=== PATIENT | male | born 1975 | race Hispanic/Latino ===

== ENCOUNTER 2025-01-17 03:38 | Observation (INO) ==
[2025-01-17] MEDS ORDERED: HALOPERIDOL LACTATE 5 MG/ML VIAL ONE (03:51)
[2025-01-17] MEDS ORDERED: 0.9 % SODIUM CHLORIDE 1000 ML 1,000 ML IV ONE ×4 (04:17→10:08)
[2025-01-17] MEDS: 0.9 % SODIUM CHLORIDE 1000 ML 1,000 ML IV ONE ×2 (04:23→06:08)
[2025-01-17] MEDS: HALOPERIDOL LACTATE 5 MG/ML VIAL INJ ONE (04:25)
[2025-01-17 04:26] LABS: Basophils #(Absolute) Auto 0.1 (0.0-0.1); Basophils%(Percent) Auto 0.8 (0.0-1.3); Eosinophils#(Absolute)Auto 0.2 (0.0-0.3); Eosinophils%(Percent) Auto 1.2 % (0.0-4.0); Granulocytes#(Absolute)- Auto 10.9 (2.0-6.2); Hematocrit 41.7 % (41.3-50.1); Monocytes #(Absolute)- Auto 1.5 (0.2-0.8); Monocytes %(Percent)- Auto 9.4 % (4.5-10.7); Platelet Count 265 K/uL (142-355); White Blood Count 15.6 K/uL (3.7-9.6)
[2025-01-17 05:10] LABS: Potassium 2.9 mmol/L (3.6-5.2)
[2025-01-17] MEDS: POTASSIUM CHLORIDE IN WATER 10 MEQ/100 ML PIGGYBACK IV ONE (06:08)
[2025-01-17] MEDS ORDERED: POTASSIUM CHLORIDE IN WATER 10 MEQ/100 ML PIGGYBACK IV ONE (06:09)
--- NOTE | 2025-01-17 08:06 | Emergency Department Note ---
HPI - General Adult General Chief complaint: Anxiety Stated complaint: ANXIETY/SUBSTANCE USE Time Seen by Provider: 01/17/25 03:54 Source: patient Mode of arrival: walk-in Limitations comment: under the influence History of Present Illness HPI narrative: Patient is a 49-year-old male in complaining of having ingested drugs prior to arrival. He told the nurses that it was cocaine and fentanyl he told me meth Onset (ago): hour(s) Treatments prior to arrival: Reports none Related Data Home Medications Medication Instructions Recorded Confirmed No Known Home Medication 01/17/25 01/17/25 Allergies Allergy/AdvReac Type Severity Reaction Status Date / Time No Known Drug Allergies Allergy Verified 01/17/25 04:30 Review of Systems Status of ROS 10 or more systems reviewed and unremark able except as noted in history and below Psychiatric Reports: anxiety, panic attacks, irritability and paranoia PFSH PFSH Medical History No active medical problems Social History Smoking status: current every day smoker What is your current living situation: I presently have a place to live Problems where you live: no known problems Highest level of school completed/degree received: decline to answer Do you think of yourself as: straight/heterosexual Gender Identity: male Exam Constitutional: normal general appearance Vital Signs - 24 hr 01/17/25 03:45 01/17/25 04:15 01/17/25 05:00 Temperature 97.5 F L 97.5 F L Pulse Rate 161 H 109 H 101 H Respiratory Rate 32 H 17 17 Blood Pressure 152/87 109/73 100/62 Pulse Oximetry 89 L 94 L 95 Oxygen Delivery Me thod Room Air Room Air Room Air 01/17/25 06:00 01/17/25 06:56 Temperature 97.5 F L Pulse Rate 95 H 88 Respiratory Rate 13 13 Blood Pressure 100/62 107/69 Pulse Oximetry 96 97 Oxygen Delivery Me thod Room Air Room Air HENMT: normocephalic Eyes: PERRL Chest: inspection of chest normal Respiratory: breath sounds equal bilaterally Cardiovascular: heart rate abnormal Neurology: clinical science consultant II-XII intact Patient very agitated. Rocking all over the bed Skin: skin color normal Course Course Hospital Course: Patient turned over to oncoming provider 0800: patient resting comfortably 1010: patient up walking to the bathroom, states he is feeling much better, no s/s of acute distress noted 1449: Spoke to Dr Fu about patient reviewed labs and imaging with her and she accepted patient to the medical floor for further evaluation and treatment. VSS, no s/s of acute distress noted Vital Signs Vital signs: Vital Signs Temperature 97.5 F L 01/17/25 03:45 Pulse Rate 161 H 01/17/25 03:45 Respiratory Rate 32 H 01/17/25 03:45 Blood Pressure 152/87 01/17/25 03:45 Pulse Oximetry 89 L 01/17/25 03:45 Oxygen Delivery Method Room Air 01/17/25 03:45 Temperature 97.5 F L 01/17/25 06:00 Pulse Rate 88 01/17/25 06:56 Respiratory Rate 13 01/17/25 06:56 Blood Pressure 107/69 01/17/25 06:56 Pulse Oximetry 97 01/17/25 06:56 Oxygen Delivery Method Room Air 01/17/25 06:56 Medical Decision Making Differential Diagnosis Differential Diagnosis: viral illness Medical Records Medical records reviewed: Yes I reviewed the patient's medical records Lab Data Lab results reviewed: Yes I reviewed the patient's lab results Labs: Lab Results 01/17/25 01/17/25 01/17/25 Range/Units 04:30 08:38 10:13 WBC 15.6 H 16.3 H (3.7-9.6) K/uL RBC 4.7 4.3 L (4.40-5.80) M/uL Hgb 14.5 12.7 L (14.0-17.4) gm/dL Hct 41.7 37.7 L (41.3-50.1) % MCV 88.0 88.5 (81.9-96.5) fl MCH 30.5 29.7 (27.6-33.7) pg MCHC 34.7 33.6 (33.0-35.7) g/dl RDW 14.1 14.1 (11.0-14.8) % Plt Count 265 199 (142-355) K/uL MPV 7.6 7.5 (6.0-10.4) fl Gran % 70.0 80.7 H (49.1-73.1) % Lymph % (Auto) 18.6 9.8 L (17.6-39.05) % [place] % (Auto) 9.4 8.9 (4.5-10.7) % Eos % (Auto) 1.2 0.2 (0.0-4.0) % Baso % (Auto) 0.8 0.4 (0.0-1.3) Lymph # (Auto) 2.9 1.6 (0.8-2.9) [place] # (Auto) 1.5 H 1.5 H (0.2-0.8) Eos # (Auto) 0.2 0.0 (0.0-0.3) Baso # (Auto) 0.1 0.1 (0.0-0.1) Absolute Gran (auto) 10.9 H 13.2 H (2.0-6.2) Sodium 140 140 (136-145) mmol/L Potassium 2.9 L 3.9 (3.6-5.2) mmol/L Chloride 102.0 105.0 (98-107) mmol/L Carbon Dioxide 25 24 (21-32) mmol/L Anion Gap 13.0 11.0 (4-14) mEq/L BUN 22 H 20 H (7-18) mg/dL Creatinine 1.6 H 1.2 (0.6-1.3) mg/dL Estimated GFR 51.8 73.2 (>59.9) Glucose 95 84 (70-110) mg/dL Calcium 8.7 8.2 L (8.5-10.1) mg/dL Magnesium 1.8 (1.8-2.4) mg/dL Total Bilirubin 0.63 0.57 (0.0-1.0) mg/dL AST 50 H 45 H (15-37) U/L ALT 37 34 (30-65) U/L Alkaline Phosphatase 72 64 (50-136) U/L Total Creatine Kinase 1122 H* 879 H* (39-308) U/L Troponin I High Sens 8.70 (4.0-60.4) ng/L Total Protein 7.4 6.8 (6.4-8.2) g/dL Albumin 3.9 3.5 (3.4-5.0) g/dL Urine Color Dark yellow (STRAW/YELL.) Urine Appearance Hazy (CLEAR) Ur Specific [place] 1.030 (1.001-1.035) Urine Protein 2+ (NEGATIVE) Urine Glucose (UA) Normal (NORMAL) Urine Ketones Moderate (NEGATIVE) Urine Occult Blood Negative (NEG - TRACE) Urine Nitrite Negative (NEGATIVE) Urine Bilirubin Negative (NEGATIVE) Urine Urobilinogen Normal (NORMAL) Ur Leukocyte Esterase Negative (NEGATIVE) Fluid pH 6.0 (5 - 9) Salicylates <2.8 L (2.8-20) mg/dL Urine Opiates Screen Neg. (NEGATIVE) Urine Methadone Screen Neg. (NEGATIVE) Acetaminophen 0.0 L (10.0-30.0) ug/mL Barbiturate Screen Neg. (NEGATIVE) Ur Phencyclidine Scrn Neg. (NEGATIVE) Amphetamines Screen Pos. (NEGATIVE) U Benzodiazepines Scrn Neg. (NEGATIVE) Urine Cocaine Screen Pos. (NEGATIVE) U Marijuana (THC) Screen Pos. (NEGATIVE) Plasma/Serum Alcohol 0 (0-10) mg/dL 01/17/25 Range/Units 13:45 WBC 14.2 H (3.7-9.6) K/uL RBC 4.2 L (4.40-5.80) M/uL Hgb 12.9 L (14.0-17.4) gm/dL Hct 39.1 L (41.3-50.1) % MCV 92.1 (81.9-96.5) fl MCH 30.4 (27.6-33.7) pg MCHC 32.9 L (33.0-35.7) g/dl RDW 15.0 H (11.0-14.8) % Plt Count 199 (142-355) K/uL MPV 7.8 (6.0-10.4) fl Gran % 77.0 H (49.1-73.1) % Lymph % (Auto) 14.3 L (17.6-39.05) % [place] % (Auto) 7.3 (4.5-10.7) % Eos % (Auto) 0.9 (0.0-4.0) % Baso % (Auto) 0.5 (0.0-1.3) Lymph # (Auto) 2.0 (0.8-2.9) [place] # (Auto) 1.0 H (0.2-0.8) Eos # (Auto) 0.1 (0.0-0.3) Baso # (Auto) 0.1 (0.0-0.1) Absolute Gran (auto) 10.9 H (2.0-6.2) Sodium 139 (136-145) mmol/L Potassium 4.1 (3.6-5.2) mmol/L Chloride 106.0 (98-107) mmol/L Carbon Dioxide 26 (21-32) mmol/L Anion Gap 7.0 (4-14) mEq/L BUN 18 (7-18) mg/dL Creatinine 1.0 (0.6-1.3) mg/dL Estimated GFR 91.1 (>59.9) Glucose 70 (70-110) mg/dL Calcium 8.1 L (8.5-10.1) mg/dL Magnesium (1.8-2.4) mg/dL Total Bilirubin 0.60 (0.0-1.0) mg/dL AST 51 H (15-37) U/L ALT 35 (30-65) U/L Alkaline Phosphatase 64 (50-136) U/L Total Creatine Kinase 1088 H* (39-308) U/L Troponin I High Sens (4.0-60.4) ng/L Total Protein 6.7 (6.4-8.2) g/dL Albumin 3.3 L (3.4-5.0) g/dL Urine Color (STRAW/YELL.) Urine Appearance (CLEAR) Ur Specific [place] (1.001-1.035) Urine Protein (NEGATIVE) Urine Glucose (UA) (NORMAL) Urine Ketones (NEGATIVE) Urine Occult Blood (NEG - TRACE) Urine Nitrite (NEGATIVE) Urine Bilirubin (NEGATIVE) Urine Urobilinogen (NORMAL) Ur Leukocyte Esterase (NEGATIVE) Fluid pH (5 - 9) Salicylates (2.8-20) mg/dL Urine Opiates Screen (NEGATIVE) Urine Methadone Screen (NEGATIVE) Acetaminophen (10.0-30.0) ug/mL Barbiturate Screen (NEGATIVE) Ur Phencyclidine Scrn (NEGATIVE) Amphetamines Screen (NEGATIVE) U Benzodiazepines Scrn (NEGATIVE) Urine Cocaine Screen (NEGATIVE) U Marijuana (THC) Screen (NEGATIVE) Plasma/Serum Alcohol (0-10) mg/dL Imaging Data Chest x-ray: Attestation: I have reviewed the pertinent imaging results. Discharge Plan Discharge Patient Disposition: Admitted As Observation Condition: Stable Chief Complaint: Anxiety Clinical Impression: Rhabdomyolysis, Acute dehydration, Elevated creatine kinase Prescriptions: No Action No Known Home Medication Print Language: Bulgarian Referrals: Provider,NO PCP [Primary Care Provider] - Time of Disposition: 14:53
[2025-01-17] MEDS: 0.9 % SODIUM CHLORIDE 1000 ML 1,000 ML IV STA ×2 (08:25→10:06)
[2025-01-17 09:00] LABS: Basophils #(Absolute) Auto 0.1 (0.0-0.1); Basophils%(Percent) Auto 0.4 (0.0-1.3); Eosinophils%(Percent) Auto 0.2 % (0.0-4.0); Granulocytes % - Auto 80.7 % (49.1-73.1); Granulocytes#(Absolute)- Auto 13.2 (2.0-6.2); Hematocrit 37.7 % (41.3-50.1); Mean Corpuscular Volume 88.5 fl (81.9-96.5); Monocytes #(Absolute)- Auto 1.5 (0.2-0.8); Monocytes %(Percent)- Auto 8.9 % (4.5-10.7); Platelet Count 199 K/uL (142-355); White Blood Count 16.3 K/uL (3.7-9.6)
[2025-01-17 09:09] LABS: Potassium 3.9 mmol/L (3.6-5.2)
[2025-01-17 10:51] LABS: Urine Appearance HAZY (CLEAR); Urine Blood NEGATIVE (NEG - TRACE); Urine Color DARK YELLOW (STRAW/YELL.); Urine Urobilinogen Normal (NORMAL)
[2025-01-17 11:06] LABS: Amphetamine Screen Urine POS. (NEGATIVE); Cannabinoid Screen Urine POS. (NEGATIVE); Cocaine Screen Urine POS. (NEGATIVE); Methadone Screen Urine NEG. (NEGATIVE); Opiate Screen Urine NEG. (NEGATIVE)
[2025-01-17 13:56] LABS: Hematocrit 39.1 % (41.3-50.1); Mean Corpuscular Volume 92.1 fl (81.9-96.5); Platelet Count 199 K/uL (142-355); White Blood Count 14.2 K/uL (3.7-9.6)
[2025-01-17 13:57] LABS: Basophils%(Percent) Auto 0.5 (0.0-1.3); Eosinophils#(Absolute)Auto 0.1 (0.0-0.3); Eosinophils%(Percent) Auto 0.9 % (0.0-4.0); Granulocytes#(Absolute)- Auto 10.9 (2.0-6.2); Monocytes %(Percent)- Auto 7.3 % (4.5-10.7)
[2025-01-17 13:58] LABS: Basophils #(Absolute) Auto 0.1 (0.0-0.1)
[2025-01-17 14:09] LABS: Potassium 4.1 mmol/L (3.6-5.2)
--- NOTE | 2025-01-17 16:16 | History & Physical Report ---
H&P: HPI History of Present Illness Chief complaint: DEHYDRATION Review of Systems Status of ROS 10 or more systems reviewed and unremark able except as noted in history and below Psychiatric Reports: anxiety, panic attacks, irritability and paranoia [facility] Medical History (Updated 01/18/25 @ 12:08 by Carol Fu DO) Patient's noncompliance with other medical treatment and regimen for other reason Cannabis abuse Methamphetamine abuse Cocaine abuse with cocaine-induced psychotic disorder UTI (urinary tract infection) Lactic acid acidosis Leukocytosis Anemia No active medical problems Social History Smoking status: current every day smoker What is your current living situation: I presently have a place to live Problems where you live: no known problems Highest level of school completed/degree received: decline to answer Do you think of yourself as: straight/heterosexual Gender Identity: male Meds Home Medications and Allergies Home Medications Medication Instructions Recorded Confirmed Type No Known Home Medication 01/17/25 01/17/25 History Allergies Allergy/AdvReac Type Severity Reaction Status Date / Time No Known Drug Allergies Allergy Verified 01/17/25 20:06 Exam Constitutional: abnormal general appearance (disheveled) and (chronically ill), distress noted (cannot be still) (moderate), abnormal body habitus, limitations noted (behavioral limitations) and alert Vital Signs - 24 hr 01/17/25 03:45 01/17/25 04:15 01/17/25 05:00 Temperature 97.5 F L 97.5 F L Pulse Rate 161 H 109 H 101 H Respiratory Rate 32 H 17 17 Blood Pressure 152/87 109/73 100/62 Pulse Oximetry 89 L 94 L 95 Oxygen Delivery Me thod Room Air Room Air Room Air 01/17/25 06:00 01/17/25 06:56 Temperature 97.5 F L Pulse Rate 95 H 88 Respiratory Rate 13 13 Blood Pressure 100/62 107/69 Pulse Oximetry 96 97 Oxygen Delivery Me thod Room Air Room Air HENMT: normocephalic, head/scalp traumatic (abrasion) and (contusion), TMs abnormal (fluid behind TM) and nasal mucous membranes abnormal (erythema and swelling ) (nasal discharge) and (abnormal septum) Eyes: PERRL, EOMs intact bilaterally, conjunctivae abnormal, papilledema noted and periorbital findings normal Neck/C-Spine: abnormal to visual inspection, trachea midline, cervical spine nontender, abnormal cervical ROM noted, supple, no meningeal signs, thyroid normal and no carotid bruits Lymph: no lymphadenopathy noted and no lymphedema noted Chest: inspection of chest normal and palpation of chest normal Respiratory: breath sounds unequal, abnormal respiratory effort (shallow breathing), clear to auscultation bilaterally, no wheezes, rales noted, no retractions and no use of accessory muscles Cardiovascular: heart rate abnormal (tachycardic) (resolved with medication and fluids in the er), regular rhythm noted, no gallop, no rub, no murmur, no JVD, no clicks, peripheral pulses as noted: and no bruits noted Gastrointestinal: abdomen abnormal to inspection, abdomen soft to palpation, nontender to palpation, nondistended, abnormal bowel sounds noted, hepatosplenomegaly noted, no masses, no pulsatile mass and no ascites Genitourinary: no CVA tenderness and bladder normal to palpation Back/Pelvis: spine abnormal to inspection, no thoracic spine tenderness, no lumbar spine tenderness, thoracic spine ROM normal and lumbar spine ROM normal Extremities: abnormal to inspection (scratches all over arms and shins), normal to palpation, no tenderness, abnormal ROM noted, no joint enlargement and deformity noted Neurology: global position system technician II-XII intact, no movement abnormality noted, no focal motor deficit noted, sensory deficit noted, deep tendon reflexes 2+ bilaterally, gait abnormality noted, speech abnormality noted, coordination abnormality noted, no fasciculations noted and GCS calculation - Eye opening: To sound Verbal response: Confused Motor response: Obey commands [place] Coma Scale total score: 13 Patient very agitated. Rocking all over the bed Psychiatry: Mental Status Exam documented within this Exam's Psych section mental status abnormal (somnolent), oriented x3, thought process abnormality noted, cooperative, affect abnormality noted (anxious) and (hostile), psychomotor abnormality noted (agitated) and (hyperactive) and memory normal Feel stressed/tense/nervous/anxious/difficulty sleeping: decline to answer Skin: skin color normal, rash noted, no lesions, no ecchymosis noted, wound(s) noted, no lacerations, skin turgor abnormal Reports (tenting), no jaundice, no petechiae, no mottling, nails abnormality noted and alopecia noted Reports (male pattern alopecia) Assessment and Plan Assessment and Plan (1) Rhabdomyolysis: Qualifiers: Rhabdomyolysis type: non-traumatic Qualified Code(s): M62.82 - Rhabdomyolysis Code(s): M62.82 - Rhabdomyolysis (2) Cocaine abuse with cocaine-induced psychotic disorder: Qualifiers: Complication of substance-induced condition: with unspecified complication Qualified Code(s): F14.159 - Cocaine abuse with cocaine-induced psychotic disorder, unspecified Code(s): F14.159 - Cocaine abuse with cocaine-induced psychotic disorder, unspecified (3) Methamphetamine abuse: Code(s): F15.10 - Other stimulant abuse, uncomplicated (4) Acute dehydration: Code(s): E86.0 - Dehydration (5) Proteinuria: Qualifiers: Proteinuria type: unspecified Qualified Code(s): R80.9 - Proteinuria, unspecified Code(s): R80.9 - Proteinuria, unspecified (6) Leukocytosis: Qualifiers: Leukocytosis type: unspecified Qualified Code(s): D72.829 - Elevated white blood cell count, unspecified Code(s): D72.829 - Elevated white blood cell count, unspecified (7) Anemia: Qualifiers: Anemia type: other cause Other causes of anemia: other cause, not classified Qualified Code(s): D64.89 - Other specified anemias Code(s): D64.9 - Anemia, unspecified (8) Cannabis abuse: Code(s): F12.10 - Cannabis abuse, uncomplicated (9) Patient's noncompliance with other medical treatment and regimen for other reason: Code(s): Z91.198 - Patient's noncompliance with other medical treatment and regimen for other reason Plan 0.9% NS at 200 ml per hour cardiac monitoring and continuos oximetry neuro checks every 2 hours and prn up out of bed as tolerated at least 3 times per day encourage oral intake of fluids drug education and need to stop Results Labs Labs: CBC 01/17/25 01/17/25 01/17/25 Range/Units 04:30 08:38 13:45 WBC 15.6 H 16.3 H 14.2 H (3.7-9.6) K/uL RBC 4.7 4.3 L 4.2 L (4.40-5.80) M/uL Hgb 14.5 12.7 L 12.9 L (14.0-17.4) gm/dL Hct 41.7 37.7 L 39.1 L (41.3-50.1) % Plt Count 265 199 199 (142-355) K/uL Gran % 70.0 80.7 H 77.0 H (49.1-73.1) % Lymph % (Auto) 18.6 9.8 L 14.3 L (17.6-39.05) % [place] % (Auto) 9.4 8.9 7.3 (4.5-10.7) % Eos % (Auto) 1.2 0.2 0.9 (0.0-4.0) % Baso % (Auto) 0.8 0.4 0.5 (0.0-1.3) Lymph # (Auto) 2.9 1.6 2.0 (0.8-2.9) [place] # (Auto) 1.5 H 1.5 H 1.0 H (0.2-0.8) Eos # (Auto) 0.2 0.0 0.1 (0.0-0.3) Baso # (Auto) 0.1 0.1 0.1 (0.0-0.1) Absolute Gran (auto) 10.9 H 13.2 H 10.9 H (2.0-6.2) CMP 01/17/25 01/17/25 01/17/25 04:30 08:38 13:45 Sodium 140 140 139 Potassium 2.9 L 3.9 4.1 Chloride 102.0 105.0 106.0 Carbon Dioxide 25 24 26 BUN 22 H 20 H 18 Creatinine 1.6 H 1.2 1.0 Glucose 95 84 70 Calcium 8.7 8.2 L 8.1 L Cardiac Enzymes 01/17/25 01/17/25 01/17/25 04:30 08:38 13:45 Total Creatine Kinase 1122 H* 879 H* 1088 H* Liver Function 01/17/25 01/17/25 01/17/25 Range/Units 04:30 08:38 13:45 Total Bilirubin 0.63 0.57 0.60 (0.0-1.0) mg/dL AST 50 H 45 H 51 H (15-37) U/L ALT 37 34 35 (30-65) U/L Alkaline Phosphatase 72 64 64 (50-136) U/L Albumin 3.9 3.5 3.3 L (3.4-5.0) g/dL Urine 01/17/25 10:13 Urine Color Dark yellow Urine Appearance Hazy Ur Specific [place] 1.030 Urine Protein 2+ Urine Glucose (UA) Normal Pulse Oximetry Attestation: I have reviewed the pertinent pulse oximetry results. ECG Attestation: I have reviewed the pertinent ECG results. Prior ECG tracings: available for review Imaging Imaging ordered: Chest x-ray Radiologist's impression: XR CHEST 1V HISTORY: coughcough; COMPARISON: Prior study or studies were utilized for comparison during interpretation with the most relevant dated 12/08/2024 TECHNIQUE: XR CHEST 1V FINDINGS: Chest: Lines and tubes: Cardiac leads overlie the chest. Mediastinum: Cardiac and mediastinal shadow is within normal limits for size and contour. Pulmonary vessels: No pulmonary vascular congestion. Lung negrete: No suspicious airspace opacity. Pleura: No effusion. No pneumothorax. Bones and soft tissues: No acute osseous or soft tissue abnormality. IMPRESSION: 1. No acute cardiopulmonary abnormality
[2025-01-17] MEDS ORDERED: ACETAMINOPHEN 500 MG TABLET PO PRN (20:02)
[2025-01-17] MEDS ORDERED: MAGNESIUM, ALUMINUM HYDROXIDE 30 ML ORAL.SUSP PO PRN (20:02)
[2025-01-17] MEDS ORDERED: DOCUSATE SODIUM 100 MG CAPSULE PO PRN (20:02)
[2025-01-17] MEDS ORDERED: ONDANSETRON HCL/PF 4 MG/2 ML VIAL INJ PRN (20:02)
[2025-01-17] MEDS: 0.9 % SODIUM CHLORIDE 1000 ML 1,000 ML IV SCH (21:04)
[2025-01-18 04:05] LABS: Basophils #(Absolute) Auto 0.1 (0.0-0.1); Basophils%(Percent) Auto 0.6 (0.0-1.3); Eosinophils#(Absolute)Auto 0.3 (0.0-0.3); Eosinophils%(Percent) Auto 3.3 % (0.0-4.0); Granulocytes % - Auto 57.3 % (49.1-73.1); Granulocytes#(Absolute)- Auto 5.2 (2.0-6.2); Hematocrit 35.5 % (41.3-50.1); Mean Corpuscular Volume 88.1 fl (81.9-96.5); Monocytes #(Absolute)- Auto 0.7 (0.2-0.8); Monocytes %(Percent)- Auto 7.4 % (4.5-10.7); Platelet Count 192 K/uL (142-355); White Blood Count 9.1 K/uL (3.7-9.6)
[2025-01-18 04:35] LABS: Potassium 3.7 mmol/L (3.6-5.2)
[2025-01-18 11:58] VITALS: RESP 20
[2025-01-18 15:45] VITALS: BP 115/63; PULSE 65; TEMP 97.8
--- NOTE | 2025-01-18 18:04 | Discharge Summary ---
DS: Providers Provider Date of admission: 01/17/25 15:00 Primary care physician: NO PCP Provider Admitting clinician: Ilana Ferrera Attending physician on admission: Carol Fu Attending physician on discharge: Carol Fu Discharging clinician: Carol Fu Anticipated date of discharge: 01/18/25 DS: Diagnosis Discharge Diagnosis (1) Rhabdomyolysis: Qualifiers: Rhabdomyolysis type: non-traumatic Qualified Code(s): M62.82 - Rhabdomyolysis (2) Cocaine abuse with cocaine-induced psychotic disorder: Qualifiers: Complication of substance-induced condition: with unspecified complication Qualified Code(s): F14.159 - Cocaine abuse with cocaine-induced psychotic disorder, unspecified (3) Methamphetamine abuse: (4) Acute dehydration: (5) Proteinuria: Qualifiers: Proteinuria type: unspecified Qualified Code(s): R80.9 - Proteinuria, unspecified (6) Leukocytosis: Qualifiers: Leukocytosis type: unspecified Qualified Code(s): D72.829 - Elevated white blood cell count, unspecified (7) Anemia: Qualifiers: Anemia type: other cause Other causes of anemia: other cause, not classified Qualified Code(s): D64.89 - Other specified anemias (8) Cannabis abuse: (9) Patient's noncompliance with other medical treatment and regimen for other reason: (10) Encounter for smoking cessation counseling: (11) Tobacco dependence due to cigarettes: DS: Summary Hospital Course Hospital Course: Patient turned over to oncoming provider 0800: patient resting comfortably 1010: patient up walking to the bathroom, states he is feeling much better, no s/s of acute distress noted 1449: Spoke to Dr Fu about patient reviewed labs and imaging with her and she accepted patient to the medical floor for further evaluation and treatment. VSS, no s/s of acute distress noted CPK trended 879 in the ER was given liter bolus normal saline run at 125 to move to the floor that was run at 100 mL/h overnight CPK went up to 1088 at 1345 on 420 01/2025 then in the a.m. of 01/18/2025 was 1106 close are still running at 100 overnight so increase fluids to 200/h and it ran from 9:30 AM till 4 PM and CPK dropped to 793 bolused in the last 700 cc of the normal saline patient was discharged home states that he felt much better even this morning but feels back to his normal self. Discussed rehab with the patient offered inpatient or outpatient rehab he states that he only uses occasionally when it his friends offered him and it does not cost him anything. He understands I dangerous this is especially after they mix the methamphetamine in with his cocaine and he was not used to that mixture. Patient will follow with his PCP in the next 2 to 3 days work for repeat CPK and CMP to make sure things is going well and were not using any drugs and he declines any rehab at this time as I should stop smoking that he knows that he n eeds to stop smoking. Patient hemoglobin remained stable as well as hematocrit remained stable white count went from 22.1 in the ER at 3 AM when he came in down to 9.1 on the day of discharge. Deviously did have some alteration during hospital stay but overall is improved no evidence of UTI or other infection at this time. Time spent discussing smoking cessation with patient: more than 10 minutes Status at Discharge Overall status at discharge: patient is back to baseline Time Spent with Patient Time attestation: Total time spent providing and/or coordinating discharge services: 49 Time spent: greater than 30 minutes Exam Constitutional: abnormal general appearance (chronically ill), no apparent distress (cannot be still), abnormal body habitus, no limitations and alert Vital Signs - 24 hr 01/17/25 19:40 01/17/25 20:01 01/17/25 20:02 Temperature 97.2 F L 98.2 F Pulse Rate 69 Pulse Rate [Left R adial] 78 Respiratory Rate 17 17 17 Blood Pressure 101/53 Blood Pressure [Le ft Arm] 104/60 Pulse Oximetry 98 95 95 Oxygen Delivery Me thod Room Air Room Air 01/18/25 00:00 01/18/25 03:56 01/18/25 07:29 Temperature 97.8 F 97.5 F L 97.7 F Pulse Rate Pulse Rate [Left R adial] 62 66 67 Respiratory Rate 18 18 16 Blood Pressure Blood Pressure [Le ft Arm] 114/64 109/57 99/64 Pulse Oximetry 96 99 97 Oxygen Delivery Me thod Room Air Room Air Room Air 01/18/25 11:57 01/18/25 15:45 Temperature 98.5 F 97.8 F Pulse Rate Pulse Rate [Left R adial] 60 65 Respiratory Rate 20 20 Blood Pressure Blood Pressure [Le ft Arm] 125/65 115/63 Pulse Oximetry 98 100 Oxygen Delivery Me thod Room Air Room Air HENMT: normocephalic, head/scalp traumatic (abrasion) and (contusion), hearing grossly normal bilaterally, TMs abnormal (fluid behind TM), nasal mucous membra marcus abnormal (erythema and swelling ) (nasal discharge) and (abnormal septum), oral mucous membranes abnormal, dentition abnormal and gingiva normal Eyes: PERRL, EOMs intact bilaterally, conjunctivae abnormal, no scleral icterus, papilledema noted and periorbital findings normal Neck/C-Spine: abnormal to visual inspection, trachea midline, cervical spine nontender, abnormal cervical ROM noted, supple, no meningeal signs, thyroid normal and no carotid bruits Lymph: no lymphadenopathy noted and no lymphedema noted Chest: inspection of chest normal and palpation of chest normal Respiratory: breath sounds equal bilaterally, normal respiratory effort, clear to auscultation bilaterally, no wheezes, rales noted, no retractions and no use of accessory muscles Cardiovascular: normal heart rate noted, regular rhythm noted, no gallop, no rub, no murmur, no JVD, no clicks, peripheral pulses as noted: and no bruits noted Gastrointestinal: abdomen abnormal to inspection, abdomen soft to palpation, nontender to palpation, nondistended, abnormal bowel sounds noted, hepatosplenomegaly noted, no masses, no pulsatile mass, no ascites and no hernia Genitourinary: no CVA tenderness and bladder normal to palpation Back/Pelvis: spine abnormal to inspection, no thoracic spine tenderness, no lumbar spine tenderness, thoracic spine ROM normal and lumbar spine ROM normal Extremities: abnormal to inspection (scratches all over arms and shins), normal to palpation, no tenderness, abnormal ROM noted, no joint enlargement and deformity noted Neurology: manager spring II-XII intact, no movement abnormality noted, no focal motor deficit noted, sensory deficit noted, deep tendon reflexes 2+ bilaterally, gait normal, speech abnormality noted, coordination abnormality noted, no fasciculations noted and GCS normal Patient very agitated. Rocking all over the bed Psychiatry: Mental Status Exam documented within this Exam's Psych section mental status grossly normal, oriented x3, thought process abnormality noted, cooperative, affect normal, psychomotor activity normal and memory normal Feel stressed/tense/nervous/anxious/difficulty sleeping: not at all Skin: skin color normal, rash noted, no lesions, no ecchymosis noted, wound(s) noted, no lacerations, skin turgor normal, no jaundice, no petechiae, no mottling, nails abnormality noted and alopecia noted Reports (male pattern alopecia) DS: Data Data Completed and Pending Labs on day of discharge: Labs from last 24 hours 01/18/25 01/18/25 16:00 04:00 WBC 9.1 RBC 4.0 L Hgb 12.3 L Hct 35.5 L MCV 88.1 MCH 30.5 MCHC 34.7 RDW 14.0 Plt Count 192 MPV 7.4 Gran % 57.3 Lymph % (Auto) 31.4 [place]ee % (Auto) 7.4 Eos % (Auto) 3.3 Baso % (Auto) 0.6 Lymph # (Auto) 2.9 [place]ee # (Auto) 0.7 Eos # (Auto) 0.3 Baso # (Auto) 0.1 Absolute Gran (auto) 5.2 Sodium 139 Potassium 3.7 Chloride 107.0 Carbon Dioxide 25 Anion Gap 7.0 BUN 13 Creatinine 0.7 Estimated GFR 111.6 Glucose 80 Calcium 8.1 L Total Creatine Kinase 793 H* 1106 H* Imaging Chest x-ray: Attestation: I have reviewed the pertinent imaging results. Radiologist's impression: XR CHEST 1V HISTORY: coughcough; COMPARISON: Prior study or studies were utilized for comparison during interpretation with the most relevant dated 12/08/2024 TECHNIQUE: XR CHEST 1V FINDINGS: Chest: Lines and tubes: Cardiac leads overlie the chest. Mediastinum: Cardiac and mediastinal shadow is within normal limits for size and contour. Pulmonary vessels: No pulmonary vascular congestion. Lung negrete: No suspicious airspace opacity. Pleura: No effusion. No pneumothorax. Bones and soft tissues: No acute osseous or soft tissue abnormality. IMPRESSION: 1. No acute cardiopulmonary abnormality Discharge Plan Discharge Disposition: Home, Self-Care Condition: Improved Discharge Medications: No Action No Known Home Medication Discharge Orders: Discharge Order (Routine); Ordered 01/18/25 Ordered By: Carol Fu Activity: increase activity as tolerated Diet: advance to your usual diet Activity Restrictions/Additional Instructions: Patient follow-up PCP next to 3 days with repeat BMP and CPK please Needs to consider doing preventative medicines like colonoscopy, aortic screening, nuclear stress test fasting medical profile Patient declines further education on stop smoking at this time he also declines any inpatient outpatient rehab as he states he does not need it he only uses occasionally more socially than anything else. Forms: Portal/Health Info Access Inst Follow-Ups: Provider,NO PCP [Primary Care Provider] -
== END 2025-01-18 18:47 | disposition home or self-care (01) ==
LOC: ED 03:38 → EDHOLD 03:38 → MS 20:28
PROVIDERS: ADMIT Family Medicine; ATTEND Family Medicine
DX: R80.9 Proteinuria, unspecified; F12.10 Cannabis abuse, uncomplicated; D64.89 Other specified anemias; D72.829 Elevated white blood cell count, unspecified; Z91.198 Patient's noncompliance with other medical treatment and regimen for other reason; F41.9 Anxiety disorder, unspecified; M62.82 Rhabdomyolysis; E86.0 Dehydration; F14.159 Cocaine abuse with cocaine-induced psychotic disorder, unspecified; F15.10 Other stimulant abuse, uncomplicated; F17.210 Nicotine dependence, cigarettes, uncomplicated; Z71.6 Tobacco abuse counseling